=== PATIENT | male | born 1995 | race Two or more races ===

== ENCOUNTER → 2022-09-04 13:58 | Outpatient (CLI) | payer SELFPAY ==
[2022-09-04 19:36] LABS: Alanine Aminotransferase 23 U/L (12-78); Albumin Level 4.9 g/dl (3.5-5.0); Albumin/Globulin Ratio 1.8 (1.1-1.8); Alkaline Phosphatase 47 U/L (38-126); Anion Gap 13.3 mEq/L (5-15); Aspartate Amino Transferase 32 U/L (17-59); Blood Urea Nitrogen 16 mg/dl (9-20); Calcium 9.1 mg/dl (8.4-10.2); Carbon Dioxide 26 mmol/L (22.0-30.0); Chloride 105 mmol/L (98-107); Chol/HDL Ratio 4.8 (1-3.5); Cholesterol 174 mg/dl (140-200); Estimated Glomerular Filt Rate 89 ml/min (>60); GFR (African American) 108 ML/MIN (>60); Globulin 2.8 g/dL (1.3-3.2); Glucose 103 mg/dl (74-100); HDL Cholesterol 36 mg/dl (40-60); Potassium 4.3 mmoL/L (3.5-5.1); Sodium 140 mmol/L (136-145); Total Protein,Serum 7.7 g/dl (6.3-8.2); Triglycerides 374 mg/dl (30-150); VLDL Cholesterol 75 mg/dL (0-40)
[2022-09-04 19:47] LABS: Basophils # 0.1 K/mm3 (0-0.2); Eosinophils # 0.5 K/mm3 (0.0-0.4); Eosinophils % 8.7 % (0.1-12.0); Hematocrit 44.6 % (42.0-52.0); Hemoglobin 15.3 g/dL (14.1-18.0); Lymphocytes # 2.3 K/mm3 (0.7-4.5); Lymphocytes % 44.2 % (10-50); Mean Corpuscular HGB Conc 34.3 g/dL (31.8-35.4); Mean Corpuscular Hemoglobin 30.6 pg (27.0-31.2); Mean Corpuscular Volume 89.2 fl (80-94); Mean Platelet Volume 8.9 fl (7.4-10.4); Monocytes # 0.3 K/mm3 (0.1-1.0); Monocytes % 6.7 % (1.7-9.3); Neutrophils % 39.3 % (37.0-80.0); Platelet Count 266 K/mm3 (142-424); Red Cell Distribution Width 12.5 % (11.5-17.5); White Blood Count 5.1 K/mm3 (4.8-10.8)
[2022-09-04 19:51] LABS: 25-OH Vitamin D, Total 31.2 ng/mL (30-100)
[2022-09-04 20:09] LABS: Prostate Specific Ag Screen 0.5 ng/ml (0.0-4.0)
== END ==
PROVIDERS: PCP Physician Assistant; Visit Provider Physician Assistant
DX: Z00.00 Encounter for general adult medical examination without abnormal findings (principal); Z12.5 Encounter for screening for malignant neoplasm of prostate
CPT/HCPCS: 80053; 80061; 82306; 84443; 85025; G0103

== ENCOUNTER → 2022-09-18 16:21 | Outpatient (CLI) | payer SELFPAY ==
--- NOTE | 2022-09-18 16:21 | MR_ITS ---
PROCEDURE INFORMATION: Exam: MR Pelvis Without Contrast Exam date and time: 09/18/2022 4:35 PM Age: 26 years old Clinical indication: Other: Enlarged prostate TECHNIQUE: Imaging protocol: Magnetic resonance imaging of the pelvis without contrast. COMPARISON: No relevant prior studies available. FINDINGS: Intraperitoneal space: No free fluid. Reproductive: The prostate gland measures approximately 2.8 x 3.9 x 3.6 cm, with a volume of approximately 20 cc. No focal lesions or masses are seen within the limitations of noncontrast technique. Bones/joints: Unremarkable. No fracture. Soft tissues: Unremarkable. IMPRESSION: Prostate measurements as above. No focal lesions or masses are seen within the limitations of noncontrast technique.
== END ==
PROVIDERS: PCP Physician Assistant; Visit Provider Physician Assistant
DX: N40.0 Benign prostatic hyperplasia without lower urinary tract symptoms (principal)
CPT/HCPCS: 72195

== ENCOUNTER 2025-08-06 10:08 | Emergency (ER) | payer SELFPAY ==
[2025-08-06 10:09] VITALS: BP 140/73; PULSE 96; RESP 20; TEMP 36.7; O2SAT 96; BMI 28.8
--- NOTE | 2025-08-06 10:32 | ED_ITS ---
<Statement entered by Guillermo Whitt MD - 08/06/25 11:49> Guillermo Whitt MD: I was consulted by the QUINCY, and we discussed the complexity of the problems being addressed. I approved the treatment and management plan for this patient's care in the emergency department, thus performing a substantive portion of the medical decision making. Patient had no red flag symptoms that would warrant emergent imaging at this time. Discharge Plan Disposition Patient Disposition: Home, Self-Care Condition: Good Prescriptions Prescriptions: New lidocaine [Lidocaine Pain Relief] 4 % adhesive patch,medicated 1 patch topical DAILY PRN (Reason: pain) Qty: 6 0RF methocarbamol 1,000 mg tablet 1,000 mg PO TID 3 Days Qty: 9 0RF No Action methylprednisolone 4 mg tablets,dose pack See Rx Instructions PO PER PKG DIR Qty: 21 0RF Rx Instructions: PO PER PKG DIR Referrals Follow up/Referrals: Provider,Referral, [Referring, Medical] - See instructions Activity Restrictions/Add. Instructions Additional Instructions/Restrictions: Tylenol or Motrin as needed Rest Lidocaine patches as needed Muscle relaxers as needed Follow-up with PCP within a week for more workup if needed If symptoms worsen or do not improve return Clinical Impressions Clinical Impression: Strain of lumbar region Thoracic back pain Qualifiers: Chronicity: acute Back pain laterality: right Qualified Code(s): M54.6 - Pain in thoracic spine Instructions Patient Instructions: DI for Low Back Pain Print Language Print Language: Somali Discharge ED Provider: Guillermo Whitt General Adult HPI General Chief complaint: Back Pain/Injury Stated complaint: AO-08/03/25- lower back pain Time Seen by Provider: 08/06/25 10:12 Mode of Arrival: Ambulatory Source of Information: Patient and Spouse Description of Symptoms (Recalled from ER Triage Doc. by RN): pt is here after attempting to lift 200lbs on now is here for back pain that has a sharp stabbing pain in right mid back down to hip. can still feel when he has to urinate and have a bowel mvmt History of Present Illness HPI narrative: 29-year-old male presents for med rt sided back pain. Patient states on he tried to lift about 200 pounds and had this sharp stabbing pain in the right mid back that moves to his hip. Patient states no bowel or bladder issues. Patient states he has tried numerous [id number] medicines nothing seems to help. Quality: stabbing Related Data Previous Rx's ?Medication ?Instructions ?Recorded methylprednisolone 4 mg tablets in See Rx Instructions PO PER PKG DIR 07/08/25 a dose pack #21 tabs lidocaine 4 % topical patch 1 patch topical DAILY PRN pain #6 08/06/25 (Lidocaine Pain Relief) ea methocarbamol 1,000 mg tablet 1,000 mg PO TID 3 days # 9 tabs 08/06/25 Allergies Allergy/AdvReac Type Severity Reaction Status Date / Time No Known Allergies Allergy Verified 07/08/25 17:21 [facility] Disclaimer: The information contained in this section may have been updated after the patient was seen, as this information can be updated by other users. Social History Smoking Status: Never smoker how long ago did patient quit smoking: Vaping, 3 months. alcohol intake: current alcohol intake frequency: a few times a month substance use type: denies use current occupational status: employed Travel in the last 8 weeks?: None marital status: single Have you lived/traveled outside [place] in past 30 days?: No Contact w/someone who lives/traveled outside [place] past 30 days?: No Exposure to someone with infectious disease in past 14 days?: No Do you have a fever (greater than 100.4 F or 38 C)?: No Have you tested positive for COVID-19?: No Exposed to someone with COVID-19 in past 14 days?: No Do you have a sore throat?: No Do you have a cough?: No Do you have any weakness?: No Do you have any diarrhea?: No Are you experiencing any unusual bleeding?: No Do you have any muscle aches/pain?: No Do you have any abdominal pain?: No Are you experiencing loss of taste or smell?: No ROS Obtained: Yes Systems reviewed as appropriate & no additional complaints except as documented Constitutional Constitutional: Denies fever(s) and Denies headache(s) ENT Ears, Nose, Mouth, and Throat: Denies headache(s) Musculoskeletal Musculoskeletal: Reports system reviewed and no additional complaints, except as documented, Reports as per HPI, Reports back pain, Reports limited range of motion, Reports muscle cramps, Reports myalgias, Denies radiating pain into limb and Denies tingling Neurologic Neurologic: Denies headache(s) and Denies tingling Physical Exam General General appearance: alert and in no apparent distress ENT ENT exam: Present normal exam Respiratory Respiratory exam: Present normal lung sounds bilaterally Cardiovascular Cardiovascular exam: Present regular rate and normal rhythm Extremities Exam Extremities exam: Present normal inspection and full ROM; Absent tenderness Back Exam Back exam: Present tenderness and muscle spasm; Absent paraspinal tenderness or vertebral tenderness Back 1 view image: 2 1. Tenderness, Neurological Exam Neurological exam: Present alert and oriented X3 Skin Skin exam: Present warm and intact Medical Decision Making Medical Records Medical records reviewed: Yes I reviewed the patient's medical records. Screening: Per USPSTF and CDC recommendations, given the prevalence of disease in our region, it is our hospital?s policy to screen for HIV and viral Hepatitis for all patients aged 18 and over and those with ongoing risk factors. Carlos Manuel Inquiry Pt receiving controlled substance: No Vital Signs: 08/06/25 10:09 Temperature 98.1 F Temperature Source Oral Pulse Rate [Left Radial] 96 H Respiratory Rate 20 Blood Pressure [Right Arm] 140/73 Blood Pressure Mean [Right Arm] 95 02 Sat by Pulse Oximetry 96 Oxygen Delivery Method Room Air Orders (Tests/Meds): ED MEDICATIONS Generic Name Dose Route Start Last Admin Trade Name Hermilo PRN Reason Stop Dose Admin Dexamethasone Sodium Phosphate 4 mg 08/06/25 10:27 Dexamethasone 4mg/Ml 1ml Vial IM 08/06/25 10:28 ONCE ONE Ketorolac Tromethamine 15 mg 08/06/25 10:27 Ketorolac 15mg/Ml Vial IM 08/06/25 10:28 ONCE ONE Lidocaine 1 each 08/06/25 10:27 Lidocaine 5% Transdermal Patch TD 08/06/25 10:28 ONCE ONE Methocarbamol 500 mg 08/06/25 10:31 Methocarbamol 500mg Tablet PO 08/06/25 10:32 ONCE ONE Medical Decision Narrative: In summary patient is a 29-year-old male who presents to the emergency department for evaluation of back pain. Patient is hemodynamically stable upon arrival, afebrile. Tenderness noted to the right thoracic area. Differential diagnosis includes muscle spasm, muscle strain. Initial workup will be conducted with offered CT patient declined. Initial inventions include IM Toradol, Decadron IM, p.o. methocarbamol and lidocaine patch. Initial workup reviewed by me patient declined CT. Upon repeat evaluation patient is able to walk. Given this patient will be discharged home with prescription of muscle relaxers and lidocaine patches encouraged to use Tylenol ibuprofen as needed and follow-up with PCP in 1 week. Critical Care Critical Care Time Critical Care Time: No
[2025-08-06] MEDS: LIDOCAINE 5% TRANSDERMAL PATCH 1 EACH TD (10:38)
[2025-08-06] MEDS: METHOCARBAMOL 500MG TABLET 500 MG PO (10:39)
[2025-08-06] MEDS: DEXAMETHASONE 4MG/ML 1ML VIAL 4 MG IM (10:40)
[2025-08-06] MEDS: KETOROLAC 15MG/ML VIAL 15 MG IM (10:40)
[2025-08-06 10:52] VITALS: BP 140/78; PULSE 80; RESP 20; TEMP 36.9; O2SAT 98
== END 2025-08-06 10:55 | disposition home or self-care (01) ==
PROVIDERS: Emergency Provider Emergency Medicine; PCP Physician Assistant
DX: S39.012A Strain of muscle, fascia and tendon of lower back, initial encounter (principal); M54.6 Pain in thoracic spine; X50.0XXA Overexertion from strenuous movement or load, initial encounter
CPT/HCPCS: 96372; 99283; 99284; J1100; J1885